=== PATIENT | female | born 1955 | race Caucasian/White ===

== ENCOUNTER → 2018-09-17 | Outpatient (CLI) | payer BC | LOC: MC.RAD 06:58 | DX: Z12.31 Encounter for screening mammogram for malignant neoplasm of breast (principal) ==

== ENCOUNTER → 2020-02-24 | Outpatient (CLI) | payer BC | LOC: MC.RAD 11:24 | DX: Z12.31 Encounter for screening mammogram for malignant neoplasm of breast (principal) ==